=== PATIENT | male | born 1950 | race Caucasian/White ===

== ENCOUNTER 2016-09-01 15:22 | Outpatient (CLI) | payer MEDICARE | END 2016-09-01 15:23 | disposition home or self-care (01) | LOC: SC 15:22 | PROVIDERS: ATTEND Nurse Practitioner Family | DX: G47.33 Obstructive sleep apnea (adult) (pediatric) (principal) | CPT/HCPCS: 99213; G0463; 99212 ==

== ENCOUNTER 2016-10-08 07:36 | Outpatient (CLI) | payer MEDICARE ==
[2016-10-08 08:17] LABS: CHOL/HDL RATIO 4.8 (<5.0); CHOLESTEROL 144 mg/dL; HDL CHOLESTEROL 30 mg/dL; TRIGLYCERIDES 122 mg/dL; VLDL CHOLESTEROL 24 mg/dL
== END 2016-10-08 07:37 | disposition home or self-care (01) ==
LOC: LAB 07:36
PROVIDERS: ATTEND Internal Medicine
DX: Z00.00 Encounter for general adult medical examination without abnormal findings (principal); Z12.5 Encounter for screening for malignant neoplasm of prostate; I10 Essential (primary) hypertension
CPT/HCPCS: 36415; 80061; G0103; 84153

== ENCOUNTER 2016-12-01 07:39 | Day surgery (SDC) | payer MEDICARE ==
[2016-12-01] MEDS ORDERED: ceFAZolin 2 GM/50 ML 2 GM/50 ML BAG IV ONE (08:22)
[2016-12-01] MEDS ORDERED: LACTATED RINGERS 1,000 ML IV ONE (08:37)
[2016-12-01] MEDS ORDERED: BUPIVACAINE 0.5% PF 30 ML VIAL SUBQ ONE ×2 (11:15)
[2016-12-01] MEDS ORDERED: KETOROLAC 30 MG/ML VIAL IVP ONE (11:40)
[2016-12-01] MEDS ORDERED: ONDANSETRON 4 MG/2 ML VIAL IVP ONE (11:40)
[2016-12-01] MEDS ORDERED: ceFAZolin 2 GM/50 ML BAG IV ONE (11:40)
[2016-12-01] MEDS ORDERED: LIDOCAINE-MPF 2% 5 ML VIAL IM ONE (11:40)
[2016-12-01] MEDS ORDERED: DEXAMETHASONE 4 MG/ML VIAL IVP ONE (11:40)
[2016-12-01] MEDS ORDERED: PROPOFOL 200 MG/20 ML VIAL IVP ONE (11:40)
[2016-12-01] MEDS ORDERED: METOCLOPRAMIDE 10 MG/2 ML VIAL IVP ONE (11:40)
[2016-12-01 12:25] VITALS: BP 115/65
--- NOTE | 2016-12-01 13:23 | OPERATIVE REPORT ---
DATE OF SURGERY: 12/01/2016 00:00:00 PREOPERATIVE DIAGNOSIS: Chronic left elbow olecranon bursitis. POSTOPERATIVE DIAGNOSIS: Chronic left elbow olecranon bursitis. NAME OF PROCEDURE: Left elbow bursectomy. SURGEON: Lakhwinder Aranda MD ANESTHESIA: General with Dr. Garza INDICATIONS FOR SURGERY: The patient is a 66-year-old male who has had a chronically enlarged left ol ecranon bursa that is bothersome to him and will not respond to nonoperative measures. Recommendation is to undergo excisional biopsy of his bursa and bursectomy. FINDINGS AT SURGERY: The patient's bursa was filled with hemorrhagic dense fluid and crystalline depo sits in the fluid. There was no sign of purulence or infection. The bursa was well walled off. DESCRIPTION OF OPERATIVE PROCEDURE: The patient was taken to the operating room, was given a general anesthetic, after which a tourniquet was placed on the upper arm and elbow and the arm were sterilely prepped and draped in standard fashion. The bursal area was approached through a curved incision desmond und the bursa and a careful dissection down to the bursal tissue utilizing Metzenbaum scissors that r eflected the bursa from surrounding tissues and excised it. The remaining tissues were intact and no further dissection/debridement done other than to remove a small bone spur off the subcutaneous borde r of the ulna at the olecranon process. The wound was irrigated thoroughly and the tourniquet was def lated. Bleeding was controlled with cautery. Closure was with interrupted Vicryl sutures in the subcu taneous tissue and Monocryl closure of skin. Sterile dressings were applied. The patient was placed i n a well-padded posterior arm splint and taken to the recovery room in stable condition. ESTIMATED BLOOD LOSS: Minimal. COMPLICATIONS: None. SPONGE AND NEEDLE COUNTS: Correct. JOB #: [id number] EXT JOB #:[id number]
== END 2016-12-01 07:40 | disposition home or self-care (01) ==
LOC: SDS 07:39
PROVIDERS: ATTEND Orthopaedic Surgery
PROC: 0MB40ZZ Excision of Left Elbow Bursa and Ligament, Open Approach (ICD-10-PCS; principal; 2016-12-01 09:00)
DX: M70.22 Olecranon bursitis, left elbow (principal); I10 Essential (primary) hypertension; I48.91 Unspecified atrial fibrillation; M06.9 Rheumatoid arthritis, unspecified; J43.9 Emphysema, unspecified
CPT/HCPCS: 24105; 93005; J0690; J7120

== ENCOUNTER 2017-08-31 13:38 | Outpatient (CLI) | payer MEDICARE | END 2017-08-31 13:39 | disposition home or self-care (01) | LOC: SC 13:38 | PROVIDERS: ATTEND Nurse Practitioner Family | DX: G47.33 Obstructive sleep apnea (adult) (pediatric) (principal) | CPT/HCPCS: 99213; G0463; 99212 ==

== ENCOUNTER 2017-11-09 07:30 | Outpatient (CLI) | payer MEDICARE ==
[2017-11-09 08:02] LABS: ALBUMIN/GLOBULIN RATIO 1.3 (1.0-2.2); BILIRUBIN,TOTAL 1.1 mg/dL (0.2-1.0); CALCIUM 9.2 mg/dL (8.5-10.3); CREATININE 0.8 mg/dL (0.6-1.2); TOTAL PROTEIN 7.2 g/dL (6.7-8.2)
[2017-11-09 08:08] LABS: BASOPHILS % (AUTO) 0.6 %; EOSINOPHILS % (AUTO) 0.5 %; HGB - HEMOGLOBIN 14.8 g/dL (14.0-18.0); LYMPHOCYTES % (AUTO) 22.5 %; MEAN CORPUSCULAR HEMOGLOBIN 33.8 pg (27.0-31.0); MEAN CORPUSCULAR VOLUME 96.5 fL (80.0-94.0); MEAN PLATELET VOLUME 9.7 fL (7.4-11.4); MONOCYTES % (AUTO) 18.4 %; PLT - PLATELET COUNT 92 10^3/uL (130-450); RED BLOOD COUNT 4.37 10^6/uL (4.70-6.10); RED CELL DISTRIBUTION WIDTH 15.2 % (12.0-15.0); WHITE BLOOD COUNT 4.5 x10^3/uL (4.8-10.8)
[2017-11-09 08:11] LABS: ABNORMAL LYMPHS % (MANUAL) 0 %; BAND NEUTROPHILS % (MANUAL) 0 %
[2017-11-09 08:34] LABS: BASOPHILS # (MANUAL) 0.1 10^3/uL (0-0.1); BASOPHILS % (MANUAL) 3 %; LYMPHOCYTES # (MANUAL) 1.2 10^3/uL (1.5-3.5); LYMPHOCYTES % (MANUAL) 22 %; MONOCYTES # (MANUAL) 0.7 10^3/uL (0.0-1.0); NEUTROPHILS # (MANUAL) 2.4 10^3/uL (1.5-6.6); NEUTROPHILS % (MANUAL) 54 %
[2017-11-09 08:36] LABS: DIFFERENTIAL COMMENT MANUAL DIFFERENTIAL; PLATELET ESTIMATE, MANUAL DECREASED (<130,000) (NORMAL); PLATELET MORPHOLOGY 2+ GIANT PLATELETS (NORMAL); RBC MORPHOLOGY (MULTIPLE) 1+ ANISOCYTOSIS (NORMAL)
== END 2017-11-09 07:31 | disposition home or self-care (01) ==
LOC: LAB 07:30
PROVIDERS: ATTEND Internal Medicine
DX: Z12.5 Encounter for screening for malignant neoplasm of prostate (principal); M06.9 Rheumatoid arthritis, unspecified; I10 Essential (primary) hypertension; I48.91 Unspecified atrial fibrillation
CPT/HCPCS: 36415; 80053; 84443; 85025; G0103; 84153

== ENCOUNTER 2017-11-15 14:56 | Outpatient (CLI) | payer MEDICARE ==
[2017-11-16 12:46] LABS: HEPATITIS C ANTIBODY NON-REACTIVE (NON-REACTIVE)
== END 2017-11-15 14:57 | disposition home or self-care (01) ==
LOC: LAB 14:56
PROVIDERS: ATTEND Internal Medicine
DX: Z00.8 Encounter for other general examination (principal)
CPT/HCPCS: 36415; 86803

== ENCOUNTER 2018-10-03 14:30 | Outpatient (CLI) | payer MEDICARE ==
--- NOTE | 2018-10-03 15:32 | SLEEP CARE CONSULTATION ---
Information from patient questionnaire entered by Josie Gonzalez. I have reviewed and concur with the information entered by Josie Gonzalez. This document represents the service I personally performed and the decisions made by me, Allison Black, RN, MSN, BOTTLE [employer]. History of Present Illness Previous diagnosis: Severe, Obstructive Sleep Apnea-Hypopnea Syndrome AHI: 55.7 Reason for CPAP/BiPAP follow up: annual Equipment type: CPAP Equipment obtained from: [facility] Mask style: Nasal Mask brand: Respironics Prior sleep studies: Yes [facility] Compliance Data - Data Reviewed with Patient Average duration of nightly device use: 8h 9m Compliance rate %: 100 Current pressure setting (cmH2O): 9 Humidity settin (does not use due to condensation) Average residual AHI: 1.7 Average large leak: 9 minutes Subjective Patient concerns: reports: condensation in mask/hose (was having until stopped using humidity ). denies: aerophagia, mask discomfort, air blowing in eyes, mask leak noise, nasal congestion, dry mouth, nose, throat, epistaxis Observed to snore while using device: No On therapy, patient: reports: sleeping better, awakening more refreshed, being more awake and alert during the day, more rested overall. denies: drowsiness while driving Initial [place] Sleepiness Scale score: 16 Current [place] Sleepiness Scale score: 3 Allergies and Home Medications Known drug allergies: Yes (penicillin) Home medication list reviewed: Yes Allergy and home medication list: Medication Name (generic/name brand) Strength & Dosage Triamcinolone Acetonide 0.1% external oint PRN to rash Metoprolol Tartrate 50mg tab one twice daily Sulfasalazine 500mg tab one twice daily Methotrexate Sodium 250mg/10mg nba. 0.6ml once weekly Fluticasone Propionate 50mcg/act nasal One two puffs each side daily PRN Vitamin D3 2000unit cap one daily Melatonin 3mg tab one daily at bedtime Naproxen Sodium 220mg tab one twice daily PRN Tums 500mg tab PRN Review of Systems Review of systems same as previous: Yes Cardiovascular: reports: high blood pressure Gastrointestinal: reports: other (chronic constipation) Urinary: reports: frequency Psychiatric: reports: depression Ear/Nose/Throat: reports: nasal congestion, sinus problems, wisdom teeth removed Musculoskeletal: reports: joint pain, joint swelling, mobility problems Immunologic: reports: sneezing, rash, itching, allergies to food or environment Impression and Plan 1. Obstructive Sleep Apnea-Hypopnea Syndrome, severe, with good treatment compliance and good apnea control. On CPAP therapy, the patient has better sleep quality and is more rested overall. Since he is not using the humidity, he is advised to turn off the heating plate. If has oral or nasal dryness or epitaxis, he is to restart humidity use. He is eligible for a new device which has a heated hose to reduce condensation. His current device is functioning well and informed of symptoms to report for replacement. At this time, he would like to wait. I informed him that it took a prescription and he has to have been seen within the last 6 months. He also had questions re supplies and a list of CPAP supply replacement list given. Patient commented on blood pressure, it was slightly elevated systolic only but has been higher in the past. . He has recently been evaluated by PCP and no concerns. Patient advised to check to see if PCP wants him to monitor at home with rationale discussed. Patient's apnea severity and rationale for treatment to reduce apnea, improve sleep quality and reduce cardiovascular and cerebrovascular events was reviewed. I also reviewed the benefit of consistent device use of CPAP for hypertension, arrhythmia, depression/anxiety. * Continue CPAP pressure at 9 cmH2O * Turn off humdity * Follow up with PCP re B/P guidelines for monitoring. * Notify me if snoring with mask or feeling that the pressure is too much or too little * Attempt to lose weight * Return for follow up in 1 year, or sooner if concerns arise I spent 100% of this [] minute visit face to face with the patient with greater than 50% of this was spent time counseling the patient and coordination of care.
== END 2018-10-03 14:31 | disposition home or self-care (01) ==
LOC: SC 14:30
PROVIDERS: ATTEND Nurse Practitioner Family
DX: G47.33 Obstructive sleep apnea (adult) (pediatric) (principal)
CPT/HCPCS: 99214; G0463; 99212

== ENCOUNTER 2019-03-29 07:38 | Outpatient (CLI) | payer BC ==
[2019-03-29 08:37] LABS: ALBUMIN/GLOBULIN RATIO 1.2 (1.0-2.2); ALKALINE PHOSPHATASE 45 IU/L (42-121); ALT ALANINE AMINOTRANSFERASE 27 IU/L (10-60); AST ASPARTATE AMINOTRANSFERASE 31 IU/L (10-42); BILIRUBIN,TOTAL 1.4 mg/dL (0.2-1.0); BUN - BLOOD UREA NITROGEN 13 mg/dL (6-20); CALCIUM 9.2 mg/dL (8.5-10.3); CARBON DIOXIDE - CO2 29 mmol/L (21-32); CHLORIDE 98 mmol/L (101-111); CHOL/HDL RATIO 5.2 (<5.0); CHOLESTEROL 156 mg/dL; GFR - MDRD 75 (>89); GLUCOSE 91 mg/dL (70-100); HDL CHOLESTEROL 30 mg/dL; LDL CHOLESTEROL,CALCULATED 108 mg/dL; LDL/HDL RATIO 3.6 (<3.6); SODIUM 138 mmol/L (135-145); TOTAL PROTEIN 7.3 g/dL (6.7-8.2); VLDL CHOLESTEROL 18 mg/dL
[2019-03-29 09:41] LABS: BASOPHILS % (AUTO) 0.7 %; EOSINOPHILS # (AUTO) 0.1 10^3/uL (0.0-0.7); EOSINOPHILS % (AUTO) 1.9 %; HGB - HEMOGLOBIN 13.5 g/dL (14.0-18.0); LYMPHOCYTES % (AUTO) 24.3 %; MEAN CORPUSCULAR HEMOGLOBIN 32.6 pg (27.0-31.0); MEAN CORPUSCULAR HGB CONC 33.5 g/dL (32.0-36.0); MEAN CORPUSCULAR VOLUME 97.3 fL (80.0-94.0); MEAN PLATELET VOLUME 12.3 fL (7.4-11.4); MONOCYTES # (AUTO) 0.6 10^3/uL (0.0-1.0); MONOCYTES % (AUTO) 13.3 %; NEUTROPHILS # (AUTO) 2.4 10^3/uL (1.5-6.6); NEUTROPHILS % (AUTO) 58.1 %; PLT - PLATELET COUNT 120 10^3/uL (130-450); RED BLOOD COUNT 4.14 10^6/uL (4.70-6.10); RED CELL DISTRIBUTION WIDTH 14.6 % (12.0-15.0); WHITE BLOOD COUNT 4.2 x10^3/uL (4.8-10.8)
[2019-03-29 10:13] LABS: HB2 TOTAL 13.4 g/dL; HEMOGLOBIN A1C 0.45 g/dL; HEMOGLOBIN A1C % 5.2 % (4.6-6.2)
== END 2019-03-29 07:39 | disposition home or self-care (01) ==
LOC: LAB 07:38
PROVIDERS: ATTEND Family Medicine
DX: Z00.8 Encounter for other general examination (principal); K57.90 Diverticulosis of intestine, part unspecified, without perforation or abscess without bleeding; G47.30 Sleep apnea, unspecified; J43.8 Other emphysema; M06.9 Rheumatoid arthritis, unspecified; I10 Essential (primary) hypertension; I48.91 Unspecified atrial fibrillation
CPT/HCPCS: 36415; 80053; 80061; 83036; 83721; 84153; 84443; 85025

== ENCOUNTER 2019-05-22 11:43 | Outpatient (CLI) | payer BC ==
--- NOTE | 2019-05-22 22:35 | SLEEP CARE CONSULTATION ---
Information from patient questionnaire entered by Judy Monroy. I have reviewed and concur with the information entered by Judy Monroy. This document represents the service I personally performed and the decisions made by me, Kieran Matthews MD, [facility]. History of Present Illness Previous diagnosis: Severe, Obstructive Sleep Apnea-Hypopnea Syndrome AHI: 55.7 (in 2013) Reason for follow up: other (7 month, transfer DME) Equipment type: CPAP Equipment obtained from: [facility] additional information: To minimize the risk of exposure, we have the option to conduct your visit with me over the phone. I will be able to discuss your health and offer medical advice. If you agree, we will bill your insurance. Do you agree to this telephone service? YES. HPI: Mr. Otoole was called today for follow up of nasal CPAP therapy. He was diagnosed to have severe obstructive sleep apnea-hypopnea syndrome. The patient wears a nasal mask. He reports using the device nightly and all through the night. The compliance report shows usage in 178 nights out of the past 180 nights, averaging 8.3 hours a night. The > 4 hour compliance rate for the past 30 days is 100%. He complained of no particular problem with the device such as soreness on the face, dry nose, epistaxis, nasal congestion or headache. He thinks that the pressure is comfortable. On the CPAP therapy he notices improvement in his sleep quality, and that he wakes up feeling fresher in the morning and more awake/alert during the day. His notices no snore at all. The average residual AHI is 2.2; and average time in large leak per day is 3 minutes. CPAP Compliance Data - Data Reviewed with Patient Average duration of nightly device use: 8.45 Compliance rate %: 98.9 (180 days) Current pressure setting (cmH2O): 9 Humidity settin Average residual AHI: 2.2 Average large leak: 2 min 50 sec Subjective Initial [place] Sleepiness Scale score: 16 Current [place] Sleepiness Scale score: 7 Allergies and Home Medications Drug allergies reviewed: Yes Home medication list reviewed: Yes Review of Systems Review of systems same as previous: Yes Physical Exam Height: 6 ft Impression and Plan IMPRESSION: 1. Obstructive Sleep Apnea-Hypopnea Syndrome, severe, with the patient doing well on nasal CPAP therapy. He has excellent compliance and significant clinical improvement. The current pressure appears effective and comfortable. His mask fits well. Overall, he is very satisfied with treatment and plans to continue with it long-term. No adjustment is necessary today. PLAN: 1. Continue with CPAP set at 9 cmH2O. 2. Prescription made for supplies to switch the patient from [facility] to [facility]. 3. Try other masks and nasal pillows. 4. Return in one year for follow up or earlier if there is any problem with the treatment. I spent 100% of the 12 minute phone call with the patient with greater than 50% of this spent counseling the patient and coordination of care.
== END 2019-05-22 11:44 | disposition home or self-care (01) ==
LOC: SC 11:43
PROVIDERS: ATTEND Internal Medicine Pulmonary Disease
DX: G47.33 Obstructive sleep apnea (adult) (pediatric) (principal)

== ENCOUNTER 2019-12-04 16:40 | Outpatient (CLI) | payer MEDICARE ==
[2019-12-09 15:30] VITALS: BP 140/100
--- NOTE | 2019-12-09 15:30 | SLEEP CARE CONSULTATION ---
Information from patient questionnaire entered by Josie Gonzalez. I have reviewed and concur with the information entered by Josie Gonzalez. This document represents the service I personally performed and the decisions made by me, Allison Black, RN, MSN, [employer] INST[employer]ER. History of Present Illness Service Date and Time: 12/04/2019 1640 Previous diagnosis: Severe, Obstructive Sleep Apnea-Hypopnea Syndrome AHI: 55.7 (in 2014) Reason for follow up: six month (Transfer DME) Equipment type: CPAP Equipment obtained from: [facility] [place] (no longer dispensing CPAP supplies) Mask style: Nasal Backup mask available: Yes (old mask) Last cushion change: 1 week Prior sleep studies: Yes Year and Where: 2013 [facility] Type of Sleep Study: Polysomnography Sleep Study - Results Prior [facility]: Yes [facility] Subject[facility] Patient concerns: reports: mask leak noise (nightly). denies: aerophagia, mask discomfort, air blowing in eyes, condensation in mask/hose, nasal congestion, dry mouth, nose, throat, epistaxis, other Observed to snore while using device: No Current pressure setting perceived as: comfortable On therapy, patient: reports: sleeping better, awakening more refreshed, being more awake and alert during the day, more rested overall. denies: drowsiness while driving Initial [place] Sleepiness Scale score: 16 Current [place] Sleepiness Scale score: 7 Allergies and Home Medications Known drug allergies: Yes ( PCN) Home medication list reviewed: Yes (no changes) Review of Systems Review of systems same as previous: Yes Physical Exam Blood Pressure: 140/100 (same 20 minutes later/ F/U with PCP next week) Cuff size: long Heart Rate: 66 O2 Saturation: 99 Height: 6 ft Weight: 262 lb Weight change since last visit: lost 26 pounds Body Mass Index: 35.5 BMI Classification: Obese Impression and Plan 1. Obstructive Sleep Apnea-Hypopnea Syndrome, severe, with unknown treatment compliance and unknown apnea control. On CPAP therapy, the patient has better sleep quality and is more rested overall. For patient supply concerns. Patient was notified that another DME can be used. I will have my record center coordinator inform of DME options. A [facility]O prescription will then be made. Patient advised to contact this office if further supply problems. The patients CPAP is over 5 years old and of reasonable use. In addition, it is starting to make louder noise, a sign of malfunction. Thus, the CPAP will be updated. A [facility] prescription will be made. Compliance guidelines for new device and follow up discussed. Mask leaks nightly, advised to adjust mask. If continued problems a mask refitting may be indicated asn added to his order. Patient has lost weight and praised for his effort and success. Currently patients BMI is 35.2 obesity class . Obesity increases the risk of apnea, CPAP pressure requirements and overall health risks especially cardiovascular and diabetes. Thus patient is advised to continue to lose weight. The BMI chart was reviewed. His goal is to get to normal weight. The patient's CPAP pressure was changed to 7-9 cmH2O to accommodate future weight loss. Symptoms to report for additional pressure adjustment discussed.Patient's apnea severity and rationale for treatment to reduce apnea, improve sleep quality and reduce cardiovascular and cerebrovascular events was reviewed. I also reviewed the benefit of consistent device use of CPAP for hypertension. 2. Elevated Blood pressure this visit. 140/100 -checked twice. He does not have a monitor at home that works correctly but checking frequently with his PCP and has visit next week. States it has been elevated lately. The patient was advised to buy blood pressure, check accuracy when follows up with PCP. The goal is to contact their primary care provider if still elevated for guidelines and further evaluation. Health risks associated with high blood pressure reviewed . * * Change auto CPAP pressure to 7-9 cmH2O * Transfer to new DME * Update CPAP * Notify me if snoring with mask or feeling that the pressure is too much or too little * Continue to lose weight * Call this office if any problems using CPAP * Return for follow up one month after obtains new CPAP , or sooner if concerns arise * * Addendum: * Delayed entry of visit to EMR due to internet outage. Also compliance unable to be reviewed in visit. Later staff were unable to obtain online so advised patient to bring in his CPAP data card. * * * Addendum: Compliance reviewed and showed that he has 99.4% complaince of CPAP use more than 4 hours and averages 8 hours and 18 minutes nightly for the past 180 days * * His CPAP is set at 9cmH20 with good control of apnea with residual AHI of 3.2 and average large mask leaks of 5 minutes . * * * * * * * Counseling Topics: Weight loss health impact Follow up recommended for: Weight management Visit Type: In Office Time Spent with Patient (minutes): 22 Provider Statement: I spent 100% of the Face to Face Visit with the patient with greater than 50% spent counseling the patient and coordination of care.
== END 2019-12-04 16:41 | disposition home or self-care (01) ==
LOC: SC 16:40
PROVIDERS: ATTEND Nurse Practitioner Family
DX: G47.33 Obstructive sleep apnea (adult) (pediatric) (principal); R03.0 Elevated blood-pressure reading, without diagnosis of hypertension; E66.9 Obesity, unspecified; Z68.35 Body mass index [BMI] 35.0-35.9, adult
CPT/HCPCS: 99213; G0463; 99212

== ENCOUNTER 2020-03-29 08:00 | Outpatient (CLI) | payer MEDICARE ==
[2020-03-29 12:06] LABS: BASOPHILS % (AUTO) 0.5 %; EOSINOPHILS # (AUTO) 0.1 10^3/uL (0.0-0.7); EOSINOPHILS % (AUTO) 1.7 %; HGB - HEMOGLOBIN 13.7 g/dL (14.0-18.0); LYMPHOCYTES # (AUTO) 0.9 10^3/uL (1.5-3.5); LYMPHOCYTES % (AUTO) 15.9 %; MEAN CORPUSCULAR HEMOGLOBIN 34.9 pg (27.0-31.0); MEAN CORPUSCULAR HGB CONC 34.5 g/dL (32.0-36.0); MEAN PLATELET VOLUME 11.9 fL (7.4-11.4); MONOCYTES # (AUTO) 1.2 10^3/uL (0.0-1.0); MONOCYTES % (AUTO) 21.3 %; NEUTROPHILS # (AUTO) 3.3 10^3/uL (1.5-6.6); NEUTROPHILS % (AUTO) 58.2 %; PLT - PLATELET COUNT 130 10^3/uL (130-450); RED BLOOD COUNT 3.93 10^6/uL (4.70-6.10); RED CELL DISTRIBUTION WIDTH 15.1 % (12.0-15.0); WHITE BLOOD COUNT 5.7 x10^3/uL (4.8-10.8)
[2020-03-29 12:57] LABS: ALBUMIN 3.8 g/dL (3.2-5.5); ALBUMIN/GLOBULIN RATIO 1.2 (1.0-2.2); ALKALINE PHOSPHATASE 61 IU/L (42-121); ALT ALANINE AMINOTRANSFERASE 25 IU/L (10-60); AST ASPARTATE AMINOTRANSFERASE 35 IU/L (10-42); BILIRUBIN,TOTAL 1.1 mg/dL (0.2-1.0); BUN - BLOOD UREA NITROGEN 12 mg/dL (6-20); CALCIUM 8.7 mg/dL (8.5-10.3); CARBON DIOXIDE - CO2 26 mmol/L (21-32); CHLORIDE 101 mmol/L (101-111); CHOL/HDL RATIO 4.7 (<5.0); CHOLESTEROL 149 mg/dL; CREATININE 0.9 mg/dL (0.6-1.2); GLUCOSE 89 mg/dL (70-100); HDL CHOLESTEROL 32 mg/dL; LDL CHOLESTEROL,CALCULATED 99 mg/dL; LDL/HDL RATIO 3.1 (<3.6); VLDL CHOLESTEROL 18 mg/dL
[2020-03-29 13:40] LABS: HEMOGLOBIN A1c% 4.7 % (4.27-6.07)
== END 2020-03-29 23:59 | disposition home or self-care (01) ==
LOC: LAB.WCP 08:00
PROVIDERS: ATTEND Family Medicine
DX: Z00.00 Encounter for general adult medical examination without abnormal findings (principal); I10 Essential (primary) hypertension
CPT/HCPCS: 36415; 80053; 80061; 83036; 83721; 84153; 84443; 85025

== ENCOUNTER 2020-07-13 07:36 | Outpatient (CLI) | payer MEDICARE ==
--- NOTE | 2020-07-14 08:10 | Ultrasound Report ---
PROCEDURE: Abdomen Limited INDICATIONS: THROMBOCYTOPENIA, UNSPECIFIED TECHNIQUE: Real-time focused scanning was performed of the abdomen, with image documentation. COMPARISON: May 23, 2008 FINDINGS: The liver demonstrates normal size and demonstrates a coarsened echogenicity. The liver de monstrates a nodular contour. No liver lesions are detected. The gallbladder has been removed. No biliary ductal dilatation is seen. The common bile duct measures 6 mm. The visualized pancreas is within normal limits. The spleen measures 13.4 x 5.1 x 13.7 cm, with a calculated volume of 491 cc. In 2009, the spleen was reported to have measured up to 19.3 cm. However, on images, the maximum length of the spleen is 13. 9 cm, and the discrepancy is attributed to a typographical error. IMPRESSION: Mild splenomegaly, which is similar in size compared to 2009. Coarsened liver echotexture, and a lobulated contour, which is consistent with cirrhosis. Please yadiel elate with known patient history. Status post cholecystectomy, without biliary dilatation. Reviewed by: Sandro Tapia MD on 07/14/2020 7:08 AM ASHA Approved by: Sandro Tapia MD on 07/14/2020 7:08 AM ASHA Station ID: [id number]
== END 2020-07-13 07:37 | disposition home or self-care (01) ==
LOC: DI 07:36
PROVIDERS: ATTEND Internal Medicine
DX: R16.1 Splenomegaly, not elsewhere classified (principal); R93.2 Abnormal findings on diagnostic imaging of liver and biliary tract; Z90.49 Acquired absence of other specified parts of digestive tract

== ENCOUNTER 2021-01-28 08:00 | Outpatient (CLI) | payer MEDICARE ==
[2021-01-28 12:42] LABS: CALCIUM 9.6 mg/dL (8.5-10.3); CREATININE 0.9 mg/dL (0.6-1.2)
== END 2021-01-28 23:59 | disposition home or self-care (01) ==
LOC: LAB.WCP 08:00
PROVIDERS: ATTEND Family Medicine
DX: I10 Essential (primary) hypertension (principal)
CPT/HCPCS: 36415; 80048

== ENCOUNTER 2021-06-09 09:24 | Outpatient (CLI) | payer MEDICARE ==
[2021-06-09 12:23] LABS: BASOPHILS % (AUTO) 0.8 %; EOSINOPHILS # (AUTO) 0.1 10^3/uL (0.0-0.7); EOSINOPHILS % (AUTO) 2.7 %; HCT - HEMATOCRIT 39.5 % (42.0-52.0); HGB - HEMOGLOBIN 13.8 g/dL (14.0-18.0); LYMPHOCYTES # (AUTO) 1.3 10^3/uL (1.5-3.5); LYMPHOCYTES % (AUTO) 23.7 %; MEAN CORPUSCULAR HEMOGLOBIN 36.1 pg (27.0-31.0); MEAN CORPUSCULAR HGB CONC 34.9 g/dL (32.0-36.0); MEAN CORPUSCULAR VOLUME 103.4 fL (80.0-94.0); MEAN PLATELET VOLUME 12.9 fL (7.4-11.4); MONOCYTES # (AUTO) 0.6 10^3/uL (0.0-1.0); MONOCYTES % (AUTO) 12.1 %; NEUTROPHILS # (AUTO) 3.1 10^3/uL (1.5-6.6); PLT - PLATELET COUNT 148 10^3/uL (130-450); RED BLOOD COUNT 3.82 10^6/uL (4.70-6.10); RED CELL DISTRIBUTION WIDTH 15.6 % (12.0-15.0); WHITE BLOOD COUNT 5.3 x10^3/uL (4.8-10.8)
[2021-06-09 12:46] LABS: THYROID STIMULATING HORMONE 2.74 uIU/mL (0.34-5.60)
[2021-06-09 12:47] LABS: ALBUMIN/GLOBULIN RATIO 1.3 (1.0-2.2); ALKALINE PHOSPHATASE 50 IU/L (42-121); ALT ALANINE AMINOTRANSFERASE 24 IU/L (10-60); AST ASPARTATE AMINOTRANSFERASE 32 IU/L (10-42); BILIRUBIN,TOTAL 1.8 mg/dL (0.2-1.0); BUN - BLOOD UREA NITROGEN 15 mg/dL (6-20); CALCIUM 9.1 mg/dL (8.5-10.3); CARBON DIOXIDE - CO2 28 mmol/L (21-32); CHLORIDE 100 mmol/L (101-111); CHOL/HDL RATIO 4.5 (<5.0); CHOLESTEROL 165 mg/dL; CREATININE 0.9 mg/dL (0.6-1.2); GFR - MDRD 84 (>89); GLUCOSE 87 mg/dL (70-100); HDL CHOLESTEROL 37 mg/dL; LDL CHOLESTEROL,CALCULATED 107 mg/dL; LDL/HDL RATIO 2.9 (<3.6); SODIUM 135 mmol/L (135-145); TOTAL PROTEIN 7.2 g/dL (6.7-8.2); TRIGLYCERIDES 105 mg/dL; VLDL CHOLESTEROL 21 mg/dL
[2021-06-09 13:07] LABS: CRP - C-REACTIVE PROTEIN < 1.0 mg/dL (0-1.0)
== END 2021-06-09 09:25 | disposition home or self-care (01) ==
LOC: LAB.N 09:24
PROVIDERS: ATTEND Family Medicine
DX: I10 Essential (primary) hypertension (principal); I48.91 Unspecified atrial fibrillation; E66.9 Obesity, unspecified; B37.2 Candidiasis of skin and nail; M06.9 Rheumatoid arthritis, unspecified
CPT/HCPCS: 36415; 80053; 80061; 83721; 84443; 85025; 85651; 86140

== ENCOUNTER 2021-12-18 13:06 | Outpatient (CLI) | payer MEDICARE ==
--- NOTE | 2021-12-18 14:34 | Ultrasound Report ---
PROCEDURE: Testicle INDICATIONS: SCROTAL MASS palpated by provider. Patient not able to palpate. TECHNIQUE: Real-time scanning was performed of the scrotum and testicles, with image documentation. Color and p ulse Doppler interrogation was performed of both testicles. COMPARISON: None. FINDINGS: Right: Testicle is normal in size at 4.2 x 2.8 x 2.7 cm. A simple appearing cyst is present at the p eriphery of the mid testis measuring up to 8 mm, likely an intratesticular cyst or a tunica albuginea cyst. Epididymis is normal in overall size and morphology. A 6 mm epididymal head cyst is present. A moderate hydrocele is present. No varicocele. Left: Testicle is normal in size at 4.3 x 2.7 x 2.7 cm. Epididymis is normal in overall size and mor phology. No varicocele. Moderate hydrocele. Doppler: Color and pulse Doppler demonstrate normal and symmetric flow in both testicles. IMPRESSION: 1. No solid testicular mass visualized. 2. 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 3. A 6 mm right epididymal head cyst is present. 4. Moderate bilateral hydroceles. Reviewed by: Deion Mueller MD on 12/18/2021 2:33 PM PDT Approved by: Deion Mueller MD on 12/18/2021 2:33 PM PDT Station ID: [id number]
== END 2021-12-18 13:07 | disposition home or self-care (01) ==
LOC: DI 13:06
PROVIDERS: ATTEND Family Medicine
DX: N44.2 Benign cyst of testis (principal); N50.3 Cyst of epididymis; N43.3 Hydrocele, unspecified

== ENCOUNTER 2022-01-13 08:00 | Outpatient (CLI) | payer MEDICARE | END 2022-01-13 23:59 | disposition home or self-care (01) | LOC: LAB.WCP 08:00 | PROVIDERS: ATTEND Family Medicine | DX: R32 Unspecified urinary incontinence (principal) | CPT/HCPCS: 87086 ==

== ENCOUNTER 2022-03-31 08:20 | Outpatient (CLI) | payer MEDICARE ==
[2022-03-31 12:30] LABS: BASOPHILS % (AUTO) 0.6 %; EOSINOPHILS % (AUTO) 0.2 %; HCT - HEMATOCRIT 44.9 % (42.0-52.0); HGB - HEMOGLOBIN 15.3 g/dL (14.0-18.0); LYMPHOCYTES # (AUTO) 1.6 10^3/uL (1.5-3.5); LYMPHOCYTES % (AUTO) 29.8 %; MEAN CORPUSCULAR HEMOGLOBIN 32.6 pg (27.0-31.0); MEAN CORPUSCULAR HGB CONC 34.1 g/dL (32.0-36.0); MEAN CORPUSCULAR VOLUME 95.7 fL (80.0-94.0); MEAN PLATELET VOLUME 12.4 fL (7.4-11.4); NEUTROPHILS # (AUTO) 2.6 10^3/uL (1.5-6.6); NEUTROPHILS % (AUTO) 48.7 %; PLT - PLATELET COUNT 132 10^3/uL (130-450); RED BLOOD COUNT 4.69 10^6/uL (4.70-6.10); RED CELL DISTRIBUTION WIDTH 13.5 % (12.0-15.0); WHITE BLOOD COUNT 5.3 x10^3/uL (4.8-10.8)
[2022-03-31 13:21] LABS: THYROID STIMULATING HORMONE 2.49 uIU/mL (0.34-5.60)
[2022-03-31 17:41] LABS: ALBUMIN 3.7 g/dL (3.2-5.5); ALBUMIN/GLOBULIN RATIO 0.9 (1.0-2.2); ALKALINE PHOSPHATASE 49 IU/L (42-121); ALT ALANINE AMINOTRANSFERASE 22 IU/L (10-60); AST ASPARTATE AMINOTRANSFERASE 28 IU/L (10-42); BILIRUBIN,TOTAL 1.5 mg/dL (0.2-1.0); BUN - BLOOD UREA NITROGEN 17 mg/dL (6-20); CALCIUM 10.4 mg/dL (8.5-10.3); CARBON DIOXIDE - CO2 28 mmol/L (21-32); CHLORIDE 101 mmol/L (101-111); CHOL/HDL RATIO 4.3 (<5.0); CHOLESTEROL 158 mg/dL; GFR - MDRD 74 (>89); GLUCOSE 89 mg/dL (70-100); HDL CHOLESTEROL 37 mg/dL; LDL CHOLESTEROL,CALCULATED 103 mg/dL; LDL/HDL RATIO 2.8 (<3.6); POTASSIUM 4.2 mmol/L (3.5-5.0); SODIUM 141 mmol/L (135-145); TOTAL PROTEIN 7.6 g/dL (6.7-8.2); TRIGLYCERIDES 90 mg/dL; VLDL CHOLESTEROL 18 mg/dL
== END 2022-03-31 08:21 | disposition home or self-care (01) ==
LOC: LAB.N 08:20
PROVIDERS: ATTEND Family Medicine
DX: I10 Essential (primary) hypertension (principal); D69.6 Thrombocytopenia, unspecified; M06.9 Rheumatoid arthritis, unspecified; I48.91 Unspecified atrial fibrillation; E66.9 Obesity, unspecified
CPT/HCPCS: 36415; 80053; 80061; 83721; 84153; 84443; 85025

== ENCOUNTER 2022-05-21 08:00 | Outpatient (CLI) | payer MEDICARE | END 2022-05-21 23:59 | disposition home or self-care (01) | LOC: LAB.N 08:00 | PROVIDERS: ATTEND Registered Nurse | DX: R05.1 Acute cough (principal) | CPT/HCPCS: 82962 ==

== ENCOUNTER 2022-05-21 12:08 | Outpatient (CLI) | payer MEDICARE | END 2022-05-21 12:09 | disposition critical access hospital (66) | LOC: EMS 12:08 | DX: R05.9 Cough, unspecified (principal); R09.02 Hypoxemia | CPT/HCPCS: A0425; A0429 ==

== ENCOUNTER 2022-05-21 12:32 | Emergency (ER) | payer MEDICARE ==
--- NOTE | 2022-05-21 12:41 | ED Physician Documentation ---
PD HPI URI - Stated complaint Stated Complaint: SOA/DRY COUGH - Chief complaint Chief Complaint: Resp - History obtained from History obtained from: Patient, Family (spouse) - History of Present Illness Timing - onset: How many weeks ago (The patient describes 3 weeks of progressive increase in cough, particularly at night and when laying down. Mild dyspnea with activity and feeling of wheezing. No chest pain. No palpitations. Minimally productive cough increasing the last several days.) Timing duration: Weeks (3) Timing details: Gradual onset, Still present Associated symptoms: Chills (initially, but not recent), Nasal congestion, Dry cough, Dyspnea (with some activities the past week). No: Fever, Productive cough, Hemoptysis, Chest pain Contributing factors: Immunocompromised, COPD / asthma (history of without recent MDI need.). No: Sick contact, Travel Improves by: Rest Worsened by: Activity, Other (coughing, particuarly at night.) Similar symptoms before: Has not had sx before Recently seen: Clinic (went to walk in initially and referred to ER as they obtained sats in the 80s% there.) PD PAST MEDICAL HISTORY - Past Medical History Cardiovascular: Hypertension, High cholesterol, Atrial flutter Respiratory: Emphysema, Sleep apnea, CPAP use Endocrine/Autoimmune: None GI: GERD, Chronic constipation : None HEENT: Chronic vision loss, Chronic hearing loss Psych: None Musculoskeletal: Osteoarthritis, Rheumatoid arthritis Derm: Other - Past Surgical History General: Cholecystectomy, Colonoscopy Ortho: Amputation, Other HEENT:  Derm: Skin cancer surgery - Present Medications Home Medications: Ambulatory Orders Medication Instructions Recorded Confirmed Naproxen Sodium [Aleve] 220 mg PO DAILY 04/12/13 04/01/22 Calcium Carbonate [Tums (Calcium 500 mg PO DAILY PRN 11/26/16 04/01/22 Carbonate 500mg)] Cholecalciferol (Vitamin D3) 2,000 unit PO DAILY 11/26/16 04/01/22 [Vitamin D] Docusate Sodium 100 mg PO TID 11/26/16 04/01/22 Fluticasone [Flonase] 2 sprays DANIEL DAILY 11/26/16 04/01/22 Melatonin 3 mg PO DAILY PM 11/26/16 04/01/22 Methotrexate [Xatmep] 15 mg INJ ONCE 11/26/16 04/01/22 Metoprolol Tartrate 25 mg PO BID 11/26/16 04/01/22 Triamcinolone 0.1% Oint [Kenalog 15 applic TOP DAILY PRN 11/26/16 04/01/22 0.1% Oint] sulfaSALAzine [Azulfidine] 500 mg PO BID 11/26/16 04/01/22 Albuterol Sulf [Ventolin Hfa 2 - 3 puffs INH QID 10 Days #1 each 05/21/22 Inhaler] Apixaban [Eliquis] 5 mg PO BID #20 tablet 05/21/22 Cetirizine [ZyrTEC] 10 mg PO DAILY #15 tablet 05/21/22 Doxycycline Hyclate 100 mg PO BID 7 Days #14 cap 05/21/22 dexAMETHasone [Decadron] 4 mg PO DAILY #5 tablet 05/21/22 - Allergies Allergies/Adverse Reactions: Allergies Allergy/AdvReac Type Severity Reaction Status Date / Time Penicillins Allergy Respiratory Verified 05/21/22 12:41 Results - Vitals Vitals: Vital Signs - 24 hr 05/21/22 05/21/22 05/21/22 12:37 13:05 13:25 Temperature 37.0 C Heart Rate 99 100 98 Respiratory 19 21 23 Rate Blood Pressure 169/109 H 150/98 H O2 Saturation 97 97 05/21/22 15:15 Temperature Heart Rate 91 Respiratory 15 Rate Blood Pressure 149/81 H O2 Saturation 100 Oxygen O2 Source Room air - Tele (time rhythm occurred) in ER Telemetry / rhythm strip: Rate (88-96), Atrial fibrillation - Labs Labs: Laboratory Tests 05/21/22 05/21/22 05/21/22 13:15 13:17 13:17 WBC 17.4 H RBC 4.71 Hgb 14.8 Hct 43.9 MCV 93.2 MCH 31.4 H MCHC 33.7 RDW 13.2 Plt Count 198 MPV 11.2 Neut # (Auto) 14.2 H Lymph # (Auto) 1.2 L [place] # (Auto) 1.9 H Eos # (Auto) 0.0 Baso # (Auto) 0.0 Absolute Nucleated RBC 0.00 Nucleated RBC % 0.0 Manual Slide Review Indicated Platelet Estimate NORMAL (130-450,000) Platelet Morphology NORMAL APPEARANCE RBC Morph Micro Appear NORMAL APPEARANCE Sodium 135 Potassium 3.9 Chloride 103 Carbon Dioxide 27 Anion Gap 5.0 L BUN 14 Creatinine 0.9 Estimated GFR (MDRD) 84 L Glucose 116 H Calcium 8.6 Magnesium 1.8 Total Bilirubin 1.5 H AST 21 ALT 18 Alkaline Phosphatase 56 B-Natriuretic Peptide Total Protein 7.7 Albumin 3.6 Globulin 4.1 Albumin/Globulin Ratio 0.9 L Lipase 44 Nasal Adenovirus (PCR) NOT DETECTED Nasal B. parapertussis DNA (PCR) NOT DETECTED Nasal Coronavir 229E PCR NOT DETECTED Nasal Coronavir HKU1 PCR NOT DETECTED Nasal Coronavir NL63 PCR NOT DETECTED Nasal Coronavir OC43 PCR NOT DETECTED Nasal Enterovir/Rhinovir PCR NOT DETECTED Nasal Influenza B PCR NOT DETECTED Nasal Influenza A PCR NOT DETECTED Nasal Parainfluen 1 PCR NOT DETECTED Nasal Parainfluen 2 PCR NOT DETECTED Nasal Parainfluen 3 PCR NOT DETECTED Nasal Parainfluen 4 PCR NOT DETECTED Nasal RSV (PCR) NOT DETECTED Nasal B.pertussis DNA PCR NOT DETECTED Nasal C.pneumoniae (PCR) NOT DETECTED Daniel Human Metapneumo PCR DETECTED A Nasal M.pneumoniae (PCR) NOT DETECTED Nasal SARS-CoV-2 (PCR) NOT DETECTED 05/21/22 13:17 WBC RBC Hgb Hct MCV MCH MCHC RDW Plt Count MPV Neut # (Auto) Lymph # (Auto) [place] # (Auto) Eos # (Auto) Baso # (Auto) Absolute Nucleated RBC Nucleated RBC % Manual Slide Review Platelet Estimate Platelet Morphology RBC Morph Micro Appear Sodium Potassium Chloride Carbon Dioxide Anion Gap BUN Creatinine Estimated GFR (MDRD) Glucose Calcium Magnesium Total Bilirubin AST ALT Alkaline Phosphatase B-Natriuretic Peptide 401 H Total Protein Albumin Globulin Albumin/Globulin Ratio Lipase Nasal Adenovirus (PCR) Nasal B. parapertussis DNA (PCR) Nasal Coronavir 229E PCR Nasal Coronavir HKU1 PCR Nasal Coronavir NL63 PCR Nasal Coronavir OC43 PCR Nasal Enterovir/Rhinovir PCR Nasal Influenza B PCR Nasal Influenza A PCR Nasal Parainfluen 1 PCR Nasal Parainfluen 2 PCR Nasal Parainfluen 3 PCR Nasal Parainfluen 4 PCR Nasal RSV (PCR) Nasal B.pertussis DNA PCR Nasal C.pneumoniae (PCR) Daniel Human Metapneumo PCR Nasal M.pneumoniae (PCR) Nasal SARS-CoV-2 (PCR) - Rads (name of study) chest xray Relevant Findings:: Prelim report reviewed, EMP independent interpretation of test (left basilar infiltrate or atelectasis. ), See rad report PD Medical Decision Making - ED course Complexity details: reviewed results (patient vitals have been good here. Sats went to 93% as lowest, otherwise 97% on RA. ), considered differential, d/w patient ED course: Patient with gradual onset cough and some wheezing and dyspnea with activity over the last 3 weeks. Increasing cough the last week but still nonproductive and no hemoptysis. No edema. Does have history very remotely of asthma but has not needed inhaler recently. Does not have one at home. No orthopnea nor leg edema. No recent surgery. He went to the walk-in clinic today was found to be in atrial fibrillation. The rate is controlled however at 100 or less. He does not feel it being irregular. He and his states he has a remote history of paroxysmal atrial fibrillation but is not aware of it recently. The patient does have wheezing diffusely on exam. His oxygenation here is 96% on room air. Heart rate is between 95 and 100 on the monitor but does show atrial fibrillation. He is on metoprolol 25 mg twice daily for blood pressure and so that may be providing adequate rate control for the fib as well. It is unclear how long he has been in this. Review of recent labs show a history of thrombocytopenia however and that could certainly preclude wanting to be on a blood thinner. We will see what his platelet count is today. By Wells criteria he is low risk for PE and by PERC scoring is only one-point because of age greater than 65. We will get a chest x-ray and some basic labs. We will try a nebulizer treatment. We will get a respiratory panel. They had done a COVID test at home and it was negative but he does sound possibly having a metapneumovirus or possibly RSV given his symptoms. We will see if he test positive for any of these. However since his symptoms have been 3 weeks, he may be negative on testing but still have residual bronchial inflammation. Concern would be for potential bacterial secondary infection given the duration of it and increasing cough even though he has been nonproductive. Consideration for inhaler, medication for cough, and possible antibiotics based on findings and x-ray. Subsequent review of chest xray has potential developing infiltrate left base. No effusion. Labs are showing normal WBC, blood count and electrolytes on my review. He was given nebulizer treatment and had good improvement on the wheezing and cough. I discussed the rationale for anticoag with ongoing atrial fib of unkown duration. Suggest follow up with PMD in few days and if atrial fib is resolved, then to consider ASA vs DOAC based on discussion with PMD and his CHADS2 score of 1 (1.9% risk of CVA per score) but on DOAC for now while in fib and in case of desire to subsequently cardiovert him. Presume viral URI with now bronchial irritation and cough/spasm, but also consider developing pneumonia. so mdi, steroid for wheezing, antibiotic for infection. He is allergic to pcn so will go with alternative. He is comfortable ambulating out of ER with his spouse. Departure - Departure Disposition: Home, Self Care Clinical Impression: Lower resp. tract infection, Atrial fibrillation with controlled ventricular rate Cough Qualifiers: Cough type: subacute Qualified Code(s): R05.2 - Subacute cough Condition: Stable Record reviewed to determine appropriate education?: Yes Instructions: ED Upper Resp Infec Abx Tx Follow-Up: Bobby Salgado MD [Primary Care Provider] - Prescriptions: dexAMETHasone [Decadron] 4 mg PO DAILY #5 tablet Doxycycline Hyclate 100 mg PO BID 7 Days #14 cap Apixaban [Eliquis] 5 mg PO BID #20 tablet Albuterol Sulf [Ventolin Hfa Inhaler] 2 - 3 puffs INH QID 10 Days #1 each Cetirizine [ZyrTEC] 10 mg PO DAILY #15 tablet Comments: Your respiratory viral panel was positive for a head and chest cold virus called mid and metapneumovirus. This is a virus that can cause bronchial inflammation and irritation and a persistent cough for a while. Your chest x-ray shows possible pneumonia appearance in the lower left versus atelectasis (with shrinkage of the lung from not deep breathing). It is mild in appearance. There is not sign of heart failure based on your x-ray or blood test called a BNP. You are in atrial fibrillation and its hard to know how long you have been in this. It seems to be rate controlled so I would continue with your usual medications which includes metoprolol twice daily. That likely is maintaining good rate control on your fibrillation. However since it does seem to be a persisting A-fib, it would be appropriate in the short-term anyway to be on a blood thinner. I prescribed Eliquis twice daily. For your breathing and cough, I would suggest albuterol inhaler 2 to 3 puffs 4 times daily for the next 7 to 10 days. Extra times if needed for wheezing. I also prescribed Decadron steroid to help with some of the wheezing and bronchial inflammation. Add cetirizine for congestion which is an antihistamine. Since you have had the persisting cough and your x-ray shows a small possible pneumonia, it would make sense to go with an antibiotic as well. I prescribed doxycycline twice daily for 7 days. I sent these prescriptions to [facility] pharmacy. Follow-up with Dr. Hoffman's office in the next week. Call for an appointment and tell them you were seen in the ER and we would like a shorter term follow- up. If you are feeling worse over the next several days, return to the ER. Otherwise hopefully will be improving over the next several days to week. Discharge Date/Time: 05/21/22 15:22
[2022-05-21] MEDS ORDERED: IPRATROPIUM/ALBUTEROL 3 ML NEB INH STA (13:10)
[2022-05-21] MEDS ORDERED: BENZONATATE 100 MG CAPSULE PO STA (13:12)
[2022-05-21 13:24] LABS: BASOPHILS % (AUTO) 0.2 %; HCT - HEMATOCRIT 43.9 % (42.0-52.0); HGB - HEMOGLOBIN 14.8 g/dL (14.0-18.0); LYMPHOCYTES # (AUTO) 1.2 10^3/uL (1.5-3.5); LYMPHOCYTES % (AUTO) 6.8 %; MEAN CORPUSCULAR HEMOGLOBIN 31.4 pg (27.0-31.0); MEAN CORPUSCULAR HGB CONC 33.7 g/dL (32.0-36.0); MEAN CORPUSCULAR VOLUME 93.2 fL (80.0-94.0); MEAN PLATELET VOLUME 11.2 fL (7.4-11.4); MONOCYTES # (AUTO) 1.9 10^3/uL (0.0-1.0); MONOCYTES % (AUTO) 11.1 %; NEUTROPHILS # (AUTO) 14.2 10^3/uL (1.5-6.6); NEUTROPHILS % (AUTO) 81.2 %; PLT - PLATELET COUNT 198 10^3/uL (130-450); RED BLOOD COUNT 4.71 10^6/uL (4.70-6.10); RED CELL DISTRIBUTION WIDTH 13.2 % (12.0-15.0); WHITE BLOOD COUNT 17.4 x10^3/uL (4.8-10.8)
[2022-05-21 13:26] LABS: SLIDE REVIEW? Indicated
[2022-05-21 13:41] LABS: ALBUMIN 3.6 g/dL (3.2-5.5); ALBUMIN/GLOBULIN RATIO 0.9 (1.0-2.2); BILIRUBIN,TOTAL 1.5 mg/dL (0.2-1.0); CALCIUM 8.6 mg/dL (8.5-10.3); CREATININE 0.9 mg/dL (0.6-1.2); MAGNESIUM 1.8 mg/dL (1.7-2.8); POTASSIUM 3.9 mmol/L (3.5-5.0); TOTAL PROTEIN 7.7 g/dL (6.7-8.2)
[2022-05-21 13:47] LABS: PLATELET ESTIMATE, MANUAL NORMAL (130-450,000) (NORMAL); PLATELET MORPHOLOGY NORMAL APPEARANCE (NORMAL); RBC MORPHOLOGY (MULTIPLE) NORMAL APPEARANCE (NORMAL)
--- NOTE | 2022-05-21 14:05 | XRAY Report ---
PROCEDURE: Chest 1 View X-Ray INDICATIONS: chest pain TECHNIQUE: One view of the chest was acquired. COMPARISON: None. FINDINGS: Surgical changes and devices: None. Lungs and pleura: No pleural effusions or pneumothorax. Mediastinum: Heart size enlarged. Mild vascular congestion noted. Minimal left basilar atelectasis a nd/or infiltrate Bones and chest wall: No suspicious bony lesions. Overlying soft tissues appear unremarkable. IMPRESSION: Cardiomegaly and mild vascular congestion. Minimal left basilar atelectasis and or infiltrate Reviewed by: Manuel Hayes MD on 05/21/2022 1:04 PM AKRUDY Approved by: Manuel Hayes MD on 05/21/2022 1:04 PM AKDT Station ID: [id number]
[2022-05-21 14:14] LABS: B. PARAPERTUSSIS- RESP PCR PAN NOT DETECTED; B. PERTUSSIS- RESP PCR PANEL NOT DETECTED; C. PNEUMONIAE- RESP PCR PANEL NOT DETECTED; CORONAVIRUS 229E-RESP PCR NOT DETECTED; CORONAVIRUS HKU1-RESP PCR NOT DETECTED; CORONAVIRUS NL63-RESP PCR NOT DETECTED; CORONAVIRUS OC43-RESP PCR NOT DETECTED; HUMAN METAPNEUMOVIRUS DETECTED; INFLUENZA A- RESP PCR PANEL NOT DETECTED; INFLUENZA B - RESP PCR PANEL NOT DETECTED; M. PNEUMONIAE- RESP PCR PANEL NOT DETECTED; PARAINFLUENZA VIRUS 1 NOT DETECTED; PARAINFLUENZA VIRUS 2 NOT DETECTED; PARAINFLUENZA VIRUS 3 NOT DETECTED; PARAINFLUENZA VIRUS 4 NOT DETECTED; RHINOVIRUS/ENTEROVIRUS NOT DETECTED; RSV- RESP PCR PANEL NOT DETECTED; SARS-CoV-2 -RESP PCR PANEL NOT DETECTED
[2022-05-21] MEDS ORDERED: CHERRY SYRUP 10 ML UDC PO ONE (15:01)
[2022-05-21] MEDS ORDERED: DEXAMETHASONE 10 MG/ML VIAL PO STA (15:01)
[2022-05-21] MEDS ORDERED: DOXYCYCLINE 100 MG TABLET PO STA (15:01)
[2022-05-21] MEDS ORDERED: CETIRIZINE 10 MG TABLET PO STA (15:02)
[2022-05-21] MEDS ORDERED: APIXABAN 5 MG TABLET PO STA (15:03)
[2022-05-21 15:16] VITALS: BP 149/81
== END 2022-05-21 15:22 | disposition home or self-care (01) ==
LOC: EDUNIT# → ED 12:32
DX: J22 Unspecified acute lower respiratory infection (principal); I48.91 Unspecified atrial fibrillation; I10 Essential (primary) hypertension; Z20.822 Contact with and (suspected) exposure to COVID-19
CPT/HCPCS: 36415; 71045; 80053; 83690; 83735; 83880; 85025; 87633; 94640; 99284; A9270

== ENCOUNTER 2022-07-14 12:22 | Outpatient (CLI) | payer MEDICARE ==
[2022-07-14 13:28] VITALS: BP 134/84
== END 2022-07-14 12:23 | disposition home or self-care (01) ==
LOC: MAC.MOP 12:22
PROVIDERS: ATTEND Family Medicine
DX: I48.91 Unspecified atrial fibrillation (principal)
CPT/HCPCS: 93242

== ENCOUNTER 2022-07-29 10:30 | Outpatient (CLI) | payer MEDICARE | END 2022-07-29 10:31 | disposition home or self-care (01) | LOC: MAC.INF 10:30 | PROVIDERS: ATTEND Family Medicine | DX: I48.91 Unspecified atrial fibrillation (principal); I49.3 Ventricular premature depolarization | CPT/HCPCS: 93244 ==

== ENCOUNTER 2022-08-13 12:34 | Outpatient (CLI) | payer MEDICARE | END 2022-08-13 12:35 | disposition home or self-care (01) | LOC: DI 12:34 | PROVIDERS: ATTEND Family Medicine | DX: I48.91 Unspecified atrial fibrillation (principal); I51.7 Cardiomegaly | CPT/HCPCS: 93306 ==

== ENCOUNTER 2022-10-05 14:34 | Outpatient (CLI) | payer MEDICARE ==
[2022-10-05 17:42] LABS: HCT - HEMATOCRIT 43.1 % (42.0-52.0); MEAN CORPUSCULAR HEMOGLOBIN 33.3 pg (27.0-31.0); MEAN CORPUSCULAR HGB CONC 34.8 g/dL (32.0-36.0); MEAN CORPUSCULAR VOLUME 95.6 fL (80.0-94.0); RED BLOOD COUNT 4.51 10^6/uL (4.70-6.10); RED CELL DISTRIBUTION WIDTH 14.6 % (12.0-15.0); WHITE BLOOD COUNT 5.4 x10^3/uL (4.8-10.8)
[2022-10-05 18:37] LABS: CALCIUM 9.4 mg/dL (8.5-10.3); CREATININE 0.9 mg/dL (0.6-1.3); POTASSIUM 3.7 mmol/L (3.5-4.5)
== END 2022-10-05 14:35 | disposition home or self-care (01) ==
LOC: LAB.N 14:34
PROVIDERS: ATTEND Family Medicine
DX: I10 Essential (primary) hypertension (principal); I48.91 Unspecified atrial fibrillation; D69.6 Thrombocytopenia, unspecified
CPT/HCPCS: 36415; 80048; 83880; 85027

== ENCOUNTER 2022-12-03 06:45 | Day surgery (SDC) | payer MEDICARE ==
[2022-12-03] MEDS ORDERED: PROPOFOL 500 MG/50 ML 500 MG/50 ML VIAL ONE (06:47)
[2022-12-03] MEDS ORDERED: GLYCOPYRROLATE 1 MG/5 ML VIAL ONE (06:47)
[2022-12-03] MEDS ORDERED: LACTATED RINGERS 1,000 ML IV ONE (06:52)
--- NOTE | 2022-12-03 07:49 | ANESTHESIA ---
Pre-Anesthesia VS, & Labs - Diagnosis screening - Procedure colonoscopy Height: 6 ft 2 in Weight (kg): 112 kg Body Mass Index: 31.6 BMI Classification: Obese - NPO Other (prep as directed) Home Medications and Allergies Home Medications: Ambulatory Orders Acetaminophen [Acetaminophen Extra Strength] 1 tab PO PRN PRN 12/03/22 Elizabeth-3/Dha/Epa/Fish Oil [Fish Oil 1,000 mg Softgel] 1 cap PO DAILY 12/03/22 diltiaZEM [Cardizem] 2 tab PO DAILY 12/03/22 sulfaSALAzine [Sulfasalazine] 1 tab PO DAILY 12/03/22 Naproxen Sodium [Aleve] 220 mg PO DAILY 04/12/13 Calcium Carbonate [Tums (Calcium Carbonate 500mg)] 500 mg PO DAILY PRN 11/26/16 Cholecalciferol (Vitamin D3) [Vitamin D] 2,000 unit PO DAILY 11/26/16 Docusate Sodium 100 mg PO TID PRN 11/26/16 Fluticasone [Flonase] 2 sprays DANIEL DAILY 11/26/16 Melatonin 3 mg PO DAILY PM 11/26/16 Metoprolol Tartrate 25 mg PO BID 11/26/16 Triamcinolone 0.1% Oint [Kenalog 0.1% Oint] 15 applic TOP DAILY PRN 11/26/16 Acetaminophen [Acetaminophen Extra Strength] 1 tab PO PRN PRN 12/03/22 Elizabeth-3/Dha/Epa/Fish Oil [Fish Oil 1,000 mg Softgel] 1 cap PO DAILY 12/03/22 diltiaZEM [Cardizem] 2 tab PO DAILY 12/03/22 sulfaSALAzine [Sulfasalazine] 1 tab PO DAILY 12/03/22 Allergies/Adverse Reactions: Allergies Allergy/AdvReac Type Severity Reaction Status Date / Time Penicillins Allergy Respiratory Verified 12/03/22 07:24 Anes History & Medical History - Anesthetic History Anesthesia Complications: reports: No previous complications - Medical History Cardiovascular: reports: Hypertension, High cholesterol, Atrial flutter Pulmonary: reports: Emphysema, Sleep apnea, CPAP use Gastrointestinal: reports: GERD, Chronic constipation Urinary: reports: None Musculoskeletal: reports: Osteoarthritis, Rheumatoid arthritis Endocrine/Autoimmune: reports: None Skin: reports: Other Smoking Status: Never smoker History of Cancer?: Yes - Surgical History General: reports: Cholecystectomy, Colonoscopy Eyes Ears Nose Throat (EENT): Orthopedic: reports: Amputation, Other Dermatologic: reports: Skin cancer surgery Exam General: Alert, Oriented x3 Dental: Dentures full Upper Neck Mobility: Normal Mallampati classification: II Thyromental Distance: greater than 6 cm Respiratory: Lungs clear Cardiovascular: Regular rate, Normal S1, Normal S2 Plan Anesthesia Type: Total IV Consent for Procedure(s) Verified and Reviewed: Yes Code Status: Attempt Resuscitation ASA classification: 3-Severe systemic disease Is this case an emergency?: No
--- NOTE | 2022-12-03 08:23 | HISTORY & PHYSICAL EXAMINATION ---
Chief Complaint - Chief Complaint Chief Complaint: here for colonoscopy History of Present Illness - History Obtained From Records Reviewed: yes History obtained from: pt Exam Limitations: none - History of Present Illness HPI Comment/Other: history colonoscopy about age 52 and age 62. no polyps. here for screening. no gi symptoms History - Past Medical History Cardiovascular: reports: Hypertension, High cholesterol, Atrial flutter Respiratory: reports: Emphysema, Sleep apnea, CPAP use Endocrine/Autoimmune: reports: None GI: reports: GERD, Chronic constipation : reports: None HEENT: reports: Chronic vision loss, Chronic hearing loss Psych: reports: None Musculoskeletal: reports: Osteoarthritis, Rheumatoid arthritis Derm: reports: Other MRSA Hx?: No - Past Surgical History General: reports: Cholecystectomy, Colonoscopy Ortho: reports: Amputation, Other HEENT: Derm: reports: Skin cancer surgery Meds/Allgy - Home Medications Home Medications: Ambulatory Orders Medication Instructions Recorded Confirmed Naproxen Sodium [Aleve] 220 mg PO DAILY 04/12/13 12/03/22 Calcium Carbonate [Tums (Calcium 500 mg PO DAILY PRN 11/26/16 12/03/22 Carbonate 500mg)] Cholecalciferol (Vitamin D3) 2,000 unit PO DAILY 11/26/16 12/03/22 [Vitamin D] Docusate Sodium 100 mg PO TID PRN 11/26/16 12/03/22 Fluticasone [Flonase] 2 sprays DANIEL DAILY 11/26/16 12/03/22 Melatonin 3 mg PO DAILY PM 11/26/16 12/03/22 Metoprolol Tartrate 25 mg PO BID 11/26/16 12/03/22 Triamcinolone 0.1% Oint [Kenalog 15 applic TOP DAILY PRN 11/26/16 12/03/22 0.1% Oint] Albuterol Sulf [Ventolin Hfa 2 - 3 puffs INH QID 10 Days #1 each 05/21/22 12/03/22 Inhaler] Acetaminophen [Acetaminophen Extra 1 tab PO PRN PRN 12/03/22 12/03/22 Strength] [place]-3/Dha/Epa/Fish Oil [Fish Oil 1 cap PO DAILY 12/03/22 12/03/22 1,000 mg Softgel] diltiaZEM [Cardizem] 2 tab PO DAILY 12/03/22 12/03/22 sulfaSALAzine [Sulfasalazine] 1 tab PO DAILY 12/03/22 12/03/22 - Allergies Allergies/Adverse Reactions: Allergies Allergy/AdvReac Type Severity Reaction Status Date / Time Penicillins Allergy Respiratory Verified 12/03/22 07:24 Review of Systems - Other Findings Other Findings: 10 pt ros as above otherwise unremarkable Exam - Physical Exam General Appearance: positive: No acute distress, Alert Eyes Bilateral: positive: PERRL, EOMI, No scleral icterus Neck: positive: No JVD, Trachea midline Respiratory: positive: No respiratory distress Cardiovascular: positive: Regular rate & rhythm Abdomen: positive: Non-tender, No distention Neurologic/Psychiatric: positive: Oriented x3 Conclusion/Plan - Problem List (1) Colon cancer screening Conclusion/Plan: plan colonoscopy. parq held and consent obtained
[2022-12-03] MEDS ORDERED: LACTATED RINGERS 550 ML IV ONE (09:15)
[2022-12-03 09:23] VITALS: O2SAT 99
[2022-12-03 09:42] VITALS: BP 139/84
--- NOTE | 2022-12-03 12:03 | ANESTHESIA POST OP EVALUATION ---
Anesthesia Post Eval - Post Anesthesia Eval Vitals: Last Vital Signs Temp 36.2 C L 12/03/22 09:29 Pulse 96 12/03/22 09:29 Resp 14 12/03/22 09:29 BP 139/84 H 12/03/22 09:29 Pulse Ox 99 12/03/22 09:29 O2 Flow Rate CV Function Including HR & BP: Stable Pain Control: Satisfactory Nausea & Vomiting: Negative Mental Status: Baseline Respiratory Status: Airway Patent Hydration Status: Satisfactory Anesthesia Complications: None
== END 2022-12-03 06:46 | disposition home or self-care (01) ==
LOC: SDS 06:45
PROVIDERS: ATTEND Surgery
PROC: 0DBK8ZZ Excision of Ascending Colon, Via Natural or Artificial Opening Endoscopic (ICD-10-PCS; principal; 2022-12-03 08:00)
DX: Z12.11 Encounter for screening for malignant neoplasm of colon (principal); D12.2 Benign neoplasm of ascending colon; K57.30 Diverticulosis of large intestine without perforation or abscess without bleeding; E66.9 Obesity, unspecified; Z68.31 Body mass index [BMI] 31.0-31.9, adult; J43.9 Emphysema, unspecified; G47.30 Sleep apnea, unspecified; I48.92 Unspecified atrial flutter
CPT/HCPCS: 45380; J7120

== ENCOUNTER 2023-06-01 09:18 | Outpatient (CLI) | payer MEDICARE ==
[2023-06-01 12:00] LABS: BASOPHILS % (AUTO) 0.6 %; HCT - HEMATOCRIT 43.8 % (42.0-52.0); HGB - HEMOGLOBIN 14.8 g/dL (14.0-18.0); LYMPHOCYTES # (AUTO) 1.1 10^3/uL (1.5-3.5); LYMPHOCYTES % (AUTO) 24.3 %; MEAN CORPUSCULAR HEMOGLOBIN 32.7 pg (27.0-31.0); MEAN CORPUSCULAR HGB CONC 33.8 g/dL (32.0-36.0); MEAN CORPUSCULAR VOLUME 96.9 fL (80.0-94.0); MEAN PLATELET VOLUME 11.9 fL (7.4-11.4); MONOCYTES # (AUTO) 0.7 10^3/uL (0.0-1.0); MONOCYTES % (AUTO) 15.3 %; NEUTROPHILS # (AUTO) 2.7 10^3/uL (1.5-6.6); NEUTROPHILS % (AUTO) 58.3 %; PLT - PLATELET COUNT 139 10^3/uL (130-450); RED BLOOD COUNT 4.52 10^6/uL (4.70-6.10); RED CELL DISTRIBUTION WIDTH 13.3 % (12.0-15.0); WHITE BLOOD COUNT 4.7 x10^3/uL (4.8-10.8)
[2023-06-01 12:18] LABS: ALBUMIN/GLOBULIN RATIO 1.1 (1.0-2.2); ALKALINE PHOSPHATASE 56 IU/L (42-121); ALT ALANINE AMINOTRANSFERASE 15 IU/L (10-60); AST ASPARTATE AMINOTRANSFERASE 21 IU/L (10-42); BUN - BLOOD UREA NITROGEN 14 mg/dL (6-20); CALCIUM 9.9 mg/dL (8.5-10.3); CARBON DIOXIDE - CO2 30 mmol/L (21-32); CHLORIDE 103 mmol/L (101-111); CHOL/HDL RATIO 4.1 (<5.0); CHOLESTEROL 157 mg/dL; GFR - MDRD 74 (>89); GLUCOSE 122 mg/dL (74-104); HDL CHOLESTEROL 38 mg/dL; LDL CHOLESTEROL,CALCULATED 96 mg/dL; LDL/HDL RATIO 2.5 (<3.6); POTASSIUM 3.6 mmol/L (3.5-4.5); SODIUM 139 mmol/L (135-145); TOTAL PROTEIN 7.7 g/dL (6.4-8.9); TRIGLYCERIDES 114 mg/dL (48-352); VLDL CHOLESTEROL 23 mg/dL
[2023-06-01 12:27] LABS: THYROID STIMULATING HORMONE 2.58 uIU/mL (0.34-5.60)
== END 2023-06-01 09:19 | disposition home or self-care (01) ==
LOC: LAB.N 09:18
PROVIDERS: ATTEND Family Medicine
DX: K74.60 Unspecified cirrhosis of liver (principal); I50.9 Heart failure, unspecified; R32 Unspecified urinary incontinence; I10 Essential (primary) hypertension; I48.91 Unspecified atrial fibrillation
CPT/HCPCS: 36415; 80053; 80061; 83721; 83880; 84153; 84443; 85025